=== PATIENT | male | born 1965 | race Caucasian/White ===

== ENCOUNTER 2018-06-19 01:47 | Inpatient (IN) | payer OTHER ==
[2018-06-19] MEDS ORDERED: NACL 0.9% 3 ML SYG IV (02:30)
[2018-06-19] MEDS ORDERED: ACETAMINOPHEN 325 MG TAB PO (02:30)
[2018-06-19] MEDS ORDERED: ONDANSETRON 4 MG INJ IV (02:30)
[2018-06-19] MEDS ORDERED: LORAZEPAM 2 MG INJ IV (02:30)
[2018-06-19 04:36] LABS: ADD MAN DIFF? NO; HAAIG REFLEX REFLEX FILED
[2018-06-19 04:39] LABS: WHITE BLOOD COUNT 6.8 10^3/ul (4.8-10.8)
[2018-06-19 04:39] LABS: ABNORMAL IP MESSAGE 1; BASOPHIL # 0.1 10^3/ul (0.0-0.1); BASOPHILS % 0.7 % (0.0-2.0); EOSINOPHILS # 0.4 10^3/ul (0.0-0.5); EOSINOPHILS % 5.9 % (0.0-7.0); HEMATOCRIT 30.2 % (42.0-52.0); HEMOGLOBIN 10.3 g/dl (14.0-18.0); LYMPHOCYTES # 1.1 10^3/ul (0.8-2.9); MEAN CORPUSCULAR HEMOGLOBIN 37.1 pg (29.0-33.0); MEAN CORPUSCULAR HGB CONC 34.1 g/dl (32.0-37.0); MEAN CORPUSCULAR VOLUME 108.6 fl (82.0-101.0); MEAN PLATELET VOLUME 10.4 fl (7.4-10.4); MONOCYTE # 0.6 10^3/ul (0.3-0.9); MONOCYTES % 8.7 % (0.0-11.0); NEUTROPHIL # 4.7 10^3/ul (1.6-7.5); NEUTROPHILS % 68.3 % (39.0-77.0); PLATELET COUNT 70 10^3/UL (140-415); POSITIVE DIFF @See below; RED BLOOD COUNT 2.78 10^6/ul (4.70-6.10); RED CELL DISTRIBUTION WIDTH 12.7 % (11.5-14.5)
[2018-06-19 04:48] LABS: HEMOGLOBIN A1C 4.5 % (0-5.9)
[2018-06-19 04:57] LABS: ALANINE AMINOTRANSFERASE 28 IU/L (13-69); ALBUMIN 2.6 g/dl (3.3-4.9); ALBUMIN/GLOBULIN RATIO 0.56; ALKALINE PHOSPHATASE 131 IU/L (42-121); ANION GAP 5 (5-13); ASPARTATE AMINO TRANSFERASE 40 IU/L (15-46); BILIRUBIN,INDIRECT 2.1 mg/dl (0-1.1); BILIRUBIN,TOTAL 2.1 mg/dl (0.2-1.3); BLOOD UREA NITROGEN 10 mg/dl (7-20); CALCIUM 7.9 mg/dl (8.4-10.2); CARBON DIOXIDE 28 mmol/L (21-31); CHLORIDE 103 mmol/L (97-110); CHOL/HDL RATIO 3.4 RATIO; CHOLESTEROL 75 mg/dl (100-200); CREATININE 0.63 mg/dl (0.61-1.24); Estimated GFR > 60 mL/min (>60); GLUCOSE 104 mg/dl (70-220); HDL CHOLESTEROL 22 mg/dl (28-71); LDL CHOLESTEROL,CALCULATED 43 mg/dl; MAGNESIUM 1.6 mg/dl (1.7-2.5); POTASSIUM 3.9 mmol/L (3.5-5.1); SODIUM 136 mmol/L (135-144); TOTAL PROTEIN 7.2 g/dl (6.1-8.1); TRIGLYCERIDES 50 mg/dl (0-149)
[2018-06-19 04:58] LABS: INR 1.57; PROTIME 19.1 Sec (11.9-14.9); PT RATIO 1.5
[2018-06-19 05:29] LABS: HEPATITIS B SURFACE ANTIGEN NEGATIVE (NEGATIVE)
[2018-06-19 05:45] LABS: ETHANOL < 10.0 mg/dl
[2018-06-19 05:46] LABS: HEPATITIS C VIRAL ANTIBODY REACTIVE (NEGATIVE)
[2018-06-19] MEDS: morphine 2 MG INJ IV ×5 (05:56→22:52)
[2018-06-19 06:03] LABS: FOLATE 10.7 ng/ml (2.8-20.0)
[2018-06-19 06:30] LABS: HEPATITIS B SURFACE ANTIBODY POSITIVE (NEGATIVE)
[2018-06-19] MEDS: CHLORDIAZEPOXIDE 25 MG CAP PO ×3 (06:32→21:00)
[2018-06-19 08:04] LABS: HEPATITIS B CORE ANTIBODY REACTIVE (NEGATIVE)
[2018-06-19 08:33] LABS: ADD UMIC YES; UR ASCORBIC ACID NEGATIVE (NEGATIVE); UR BILIRUBIN (Dip) NEGATIVE (NEGATIVE); UR BLOOD (Dip) 2+ mg/dL (NEGATIVE); UR CLARITY SLIGHTLY CLOUDY (CLEAR); UR COLOR AMBER (YELLOW); UR GLUCOSE (Dip) NEGATIVE (NEGATIVE); UR KETONES (Dip) NEGATIVE (NEGATIVE); UR LEUKOCYTE ESTERASE (Dip) NEGATIVE Leu/ul (NEGATIVE); UR NITRITE (Dip) NEGATIVE (NEGATIVE); UR RBC 17 /HPF (0-5); UR SPECIFIC GRAVITY (Dip) 1.053 (1.003-1.030); UR SQUAMOUS EPITHELIAL CELL FEW /HPF (FEW); UR TOTAL PROTEIN (Dip) 1+ mg/dl (NEGATIVE); UR UROBILINOGEN (Dip) 1+ mg/dL (NEGATIVE); UR WBC 2 /HPF (0-5)
[2018-06-19] MEDS: FUROSEMIDE 40 MG INJ IV (09:19)
[2018-06-19] MEDS: THIAMINE 200 MG INJ IM (09:19)
[2018-06-19 09:26] LABS: AMPHETAMINE/METHAMPHETAMINE Negative (NEGATIVE); BARBITURATES Negative (NEGATIVE); BENZODIAZEPINES Negative (NEGATIVE); CANNABINOIDS Negative (NEGATIVE); COCAINE Negative (NEGATIVE)
[2018-06-19 09:31] LABS: OPIATES Positive (NEGATIVE)
[2018-06-19] MEDS: MAGNESIUM SULFATE 2 GM/50 ML 50 ML IVPB (11:26)
[2018-06-19] MEDS: NICOTINE POLACRILEX 2 MG GUM BUCCAL (16:09)
[2018-06-20] MEDS: morphine 2 MG INJ IV ×5 (03:58→20:55)
[2018-06-20] MEDS: THIAMINE 200 MG INJ IM (05:49)
[2018-06-20] MEDS: CHLORDIAZEPOXIDE 25 MG CAP PO ×4 (05:51→21:00)
[2018-06-20 06:00] LABS: ADD MAN DIFF? NO
[2018-06-20 06:01] LABS: WHITE BLOOD COUNT 5.4 10^3/ul (4.8-10.8)
[2018-06-20 06:01] LABS: ABNORMAL IP MESSAGE 1; BASOPHIL # 0.1 10^3/ul (0.0-0.1); BASOPHILS % 1.1 % (0.0-2.0); EOSINOPHILS # 0.4 10^3/ul (0.0-0.5); EOSINOPHILS % 7.6 % (0.0-7.0); HEMATOCRIT 27.1 % (42.0-52.0); HEMOGLOBIN 9.2 g/dl (14.0-18.0); LYMPHOCYTES # 1.4 10^3/ul (0.8-2.9); LYMPHOCYTES % 25.5 % (15.0-51.0); MEAN CORPUSCULAR HEMOGLOBIN 36.9 pg (29.0-33.0); MEAN CORPUSCULAR HGB CONC 33.9 g/dl (32.0-37.0); MEAN CORPUSCULAR VOLUME 108.8 fl (82.0-101.0); MEAN PLATELET VOLUME 10.8 fl (7.4-10.4); MONOCYTE # 0.6 10^3/ul (0.3-0.9); MONOCYTES % 11.6 % (0.0-11.0); NEUTROPHIL # 2.9 10^3/ul (1.6-7.5); NEUTROPHILS % 53.8 % (39.0-77.0); PLATELET COUNT 63 10^3/UL (140-415); POSITIVE DIFF @See below; RED BLOOD COUNT 2.49 10^6/ul (4.70-6.10); RED CELL DISTRIBUTION WIDTH 12.6 % (11.5-14.5)
[2018-06-20 06:32] LABS: INR 1.56; PT RATIO 1.5
[2018-06-20 06:44] LABS: PHOSPHORUS 4.2 mg/dl (2.5-4.9)
[2018-06-20 06:44] LABS: MAGNESIUM 1.7 mg/dl (1.7-2.5)
[2018-06-20 07:15] LABS: AMMONIA 43 umol/l (9-30)
[2018-06-20 07:31] LABS: ALANINE AMINOTRANSFERASE 21 IU/L (13-69); ALBUMIN 2.1 g/dl (3.3-4.9); ALBUMIN/GLOBULIN RATIO 0.55; ALKALINE PHOSPHATASE 159 IU/L (42-121); ANION GAP 3 (5-13); ASPARTATE AMINO TRANSFERASE 38 IU/L (15-46); BILIRUBIN,INDIRECT 0.8 mg/dl (0-1.1); BILIRUBIN,TOTAL 0.8 mg/dl (0.2-1.3); BLOOD UREA NITROGEN 13 mg/dl (7-20); CALCIUM 7.5 mg/dl (8.4-10.2); CARBON DIOXIDE 29 mmol/L (21-31); CHLORIDE 102 mmol/L (97-110); CREATININE 0.61 mg/dl (0.61-1.24); Estimated GFR > 60 mL/min (>60); GLUCOSE 106 mg/dl (70-220); SODIUM 134 mmol/L (135-144); TOTAL PROTEIN 5.9 g/dl (6.1-8.1)
[2018-06-20] MEDS: FUROSEMIDE 40 MG INJ IV (08:23)
[2018-06-20] MEDS: LACTULOSE 30ML CUP PO ×2 (10:10→20:21)
[2018-06-20] MEDS: NICOTINE POLACRILEX 2 MG GUM BUCCAL (10:28)
[2018-06-20] MEDS: LIDOCAINE 1% (MPF) 5 ML VIAL (15:19)
[2018-06-20 15:35] LABS: FLD PMN% 21.2 %; FLD RBC 0 /uL; FLD WBC 142 /cmm
[2018-06-20 15:42] LABS: FLUID LD 248 U/L; FLUID TYPE PARACENTESIS FLUID
[2018-06-20 16:44] LABS: FLD TYPE PARACENTHESIS
[2018-06-20 16:44] LABS: FLD CLARITY HAZY; FLD COLOR YELLOW; FLD MN% 78.8 %
[2018-06-20] MEDS: ALBUMIN HUMAN 25% 100 ML IV ×2 (17:51→18:54)
[2018-06-21] MEDS: morphine 2 MG INJ IV ×3 (05:29→15:14)
[2018-06-21 05:32] LABS: ADD MAN DIFF? NO
[2018-06-21] MEDS: CHLORDIAZEPOXIDE 25 MG CAP PO ×2 (05:32→12:28)
[2018-06-21 05:46] LABS: WHITE BLOOD COUNT 5.6 10^3/ul (4.8-10.8)
[2018-06-21 05:46] LABS: ABNORMAL IP MESSAGE 1; BASOPHIL # 0.1 10^3/ul (0.0-0.1); BASOPHILS % 0.9 % (0.0-2.0); EOSINOPHILS # 0.3 10^3/ul (0.0-0.5); EOSINOPHILS % 5.2 % (0.0-7.0); HEMATOCRIT 27.5 % (42.0-52.0); HEMOGLOBIN 9.6 g/dl (14.0-18.0); LYMPHOCYTES # 1.2 10^3/ul (0.8-2.9); LYMPHOCYTES % 22.1 % (15.0-51.0); MEAN CORPUSCULAR HEMOGLOBIN 37.6 pg (29.0-33.0); MEAN CORPUSCULAR HGB CONC 34.9 g/dl (32.0-37.0); MEAN CORPUSCULAR VOLUME 107.8 fl (82.0-101.0); MEAN PLATELET VOLUME 10.9 fl (7.4-10.4); MONOCYTE # 0.6 10^3/ul (0.3-0.9); MONOCYTES % 11.2 % (0.0-11.0); NEUTROPHIL # 3.4 10^3/ul (1.6-7.5); NEUTROPHILS % 60.2 % (39.0-77.0); PLATELET COUNT 58 10^3/UL (140-415); POSITIVE DIFF @See below; RED BLOOD COUNT 2.55 10^6/ul (4.70-6.10); RED CELL DISTRIBUTION WIDTH 12.4 % (11.5-14.5)
[2018-06-21 05:59] LABS: INR 1.83; PROTIME 21.6 Sec (11.9-14.9); PT RATIO 1.7
[2018-06-21 06:19] LABS: MAGNESIUM 1.7 mg/dl (1.7-2.5)
[2018-06-21 06:58] LABS: AMMONIA 44 umol/l (9-30)
[2018-06-21 07:35] LABS: ALANINE AMINOTRANSFERASE 24 IU/L (13-69); ALBUMIN 2.3 g/dl (3.3-4.9); ALBUMIN/GLOBULIN RATIO 0.67; ALKALINE PHOSPHATASE 132 IU/L (42-121); ANION GAP 4 (5-13); ASPARTATE AMINO TRANSFERASE 36 IU/L (15-46); BILIRUBIN,INDIRECT 0.9 mg/dl (0-1.1); BILIRUBIN,TOTAL 0.9 mg/dl (0.2-1.3); BLOOD UREA NITROGEN 12 mg/dl (7-20); CALCIUM 7.6 mg/dl (8.4-10.2); CARBON DIOXIDE 30 mmol/L (21-31); CHLORIDE 102 mmol/L (97-110); CREATININE 0.62 mg/dl (0.61-1.24); Estimated GFR > 60 mL/min (>60); GLUCOSE 106 mg/dl (70-220); SODIUM 136 mmol/L (135-144); TOTAL PROTEIN 5.7 g/dl (6.1-8.1)
[2018-06-21] MEDS: LACTULOSE 30ML CUP PO (08:31)
[2018-06-21] MEDS: FUROSEMIDE 40 MG INJ IV (08:31)
[2018-06-21] MEDS: THIAMINE 200 MG INJ IM (10:35)
[2018-06-22] MEDS ORDERED: THIAMINE 100 MG TAB PO (09:00)
[2018-06-22] MEDS ORDERED: FUROSEMIDE 20 MG TAB PO (09:00)
[2018-06-22] MEDS ORDERED: SPIRONOLACTONE 50 MG TAB PO (21:00)
[2018-06-23 17:46] LABS: VITAMIN B1 (THIAMINE) 107 nmol/L (78-185)
== END 2018-06-21 17:52 | disposition home or self-care (01) | DRG 433 ==
LOC: PP2 06-20 16:49 → TEL 01:47
PROC: 0W9G3ZZ Drainage of Peritoneal Cavity, Percutaneous Approach (ICD-10-PCS; principal; 2018-06-20)
DX: K70.31 Alcoholic cirrhosis of liver with ascites (principal); D68.4 Acquired coagulation factor deficiency; K76.6 Portal hypertension; B18.2 Chronic viral hepatitis C; D50.9 Iron deficiency anemia, unspecified; E66.9 Obesity, unspecified; F10.20 Alcohol dependence, uncomplicated; F32.9 Major depressive disorder, single episode, unspecified; F17.200 Nicotine dependence, unspecified, uncomplicated; I10 Essential (primary) hypertension; Z68.32 Body mass index [BMI] 32.0-32.9, adult
CPT/HCPCS: 80053; 80061; 80307; 81001; 82140; 82607; 82746; 83036; 83615; 83735; 84100; 84157; 84425; 84443; 85025; 85610; 86692; 86704; 86706; 86709; 86803; 87070; 87102; 87116; 87340; 87522; 89051

== ENCOUNTER 2018-06-23 01:19 | Observation (INO) | payer OTHER ==
[2018-06-23 02:18] LABS: ADD MAN DIFF? NO
[2018-06-23 02:22] LABS: ABNORMAL IP MESSAGE 1; BASOPHIL # 0.1 10^3/ul (0.0-0.1); BASOPHILS % 0.9 % (0.0-2.0); EOSINOPHILS # 0.2 10^3/ul (0.0-0.5); EOSINOPHILS % 3.5 % (0.0-7.0); HEMATOCRIT 29.6 % (42.0-52.0); HEMOGLOBIN 10.5 g/dl (14.0-18.0); LYMPHOCYTES % 16.9 % (15.0-51.0); MEAN CORPUSCULAR HEMOGLOBIN 37.8 pg (29.0-33.0); MEAN CORPUSCULAR HGB CONC 35.5 g/dl (32.0-37.0); MEAN CORPUSCULAR VOLUME 106.5 fl (82.0-101.0); MEAN PLATELET VOLUME 10.5 fl (7.4-10.4); MONOCYTE # 0.6 10^3/ul (0.3-0.9); MONOCYTES % 10.8 % (0.0-11.0); NEUTROPHIL # 3.8 10^3/ul (1.6-7.5); NEUTROPHILS % 67.5 % (39.0-77.0); PLATELET COUNT 61 10^3/UL (140-415); POSITIVE DIFF @See below; RED BLOOD COUNT 2.78 10^6/ul (4.70-6.10); RED CELL DISTRIBUTION WIDTH 12.5 % (11.5-14.5)
[2018-06-23 02:22] LABS: WHITE BLOOD COUNT 5.7 10^3/ul (4.8-10.8)
[2018-06-23 02:41] LABS: INR 1.51; PROTIME 18.5 Sec (11.9-14.9); PT RATIO 1.4
[2018-06-23 02:42] LABS: PARTIAL THROMBOPLASTIN TIME 39.8 Sec (23.0-35.0)
[2018-06-23 02:46] LABS: ALANINE AMINOTRANSFERASE 27 IU/L (13-69); ALBUMIN 2.8 g/dl (3.3-4.9); ALBUMIN/GLOBULIN RATIO 0.68; ALKALINE PHOSPHATASE 180 IU/L (42-121); ANION GAP 4 (5-13); ASPARTATE AMINO TRANSFERASE 45 IU/L (15-46); BILIRUBIN,INDIRECT 1.7 mg/dl (0-1.1); BILIRUBIN,TOTAL 1.7 mg/dl (0.2-1.3); BLOOD UREA NITROGEN 16 mg/dl (7-20); CARBON DIOXIDE 29 mmol/L (21-31); CHLORIDE 101 mmol/L (97-110); CREATININE 0.65 mg/dl (0.61-1.24); Estimated GFR > 60 mL/min (>60); GLUCOSE 105 mg/dl (70-220); LIPASE 342 U/L (23-300); POTASSIUM 3.6 mmol/L (3.5-5.1); SODIUM 134 mmol/L (135-144); TOTAL PROTEIN 6.9 g/dl (6.1-8.1)
[2018-06-23] MEDS ORDERED: ACETAMINOPHEN 325 MG TAB PO (04:00)
[2018-06-23] MEDS ORDERED: ONDANSETRON 4 MG INJ IV (04:00)
[2018-06-23] MEDS ORDERED: ALBUTEROL/IPRATROPIUM (NEB) 3 ML AMP HHN (04:00)
[2018-06-23] MEDS ORDERED: NACL 0.9% 3 ML SYG IV (04:00)
[2018-06-23] MEDS ORDERED: NICOTINE POLACRILEX 2 MG GUM BUCCAL (04:00)
[2018-06-23] MEDS: FUROSEMIDE 40 MG INJ IV (04:21)
[2018-06-23] MEDS: HYDROCODONE/APAP (5/325) TAB PO ×2 (04:22→11:19)
[2018-06-23 05:48] LABS: ADD MAN DIFF? NO
[2018-06-23 06:03] LABS: WHITE BLOOD COUNT 5.8 10^3/ul (4.8-10.8)
[2018-06-23 06:03] LABS: ABNORMAL IP MESSAGE 1; BASOPHILS % 0.7 % (0.0-2.0); EOSINOPHILS # 0.1 10^3/ul (0.0-0.5); HEMATOCRIT 29.5 % (42.0-52.0); HEMOGLOBIN 10.5 g/dl (14.0-18.0); MEAN CORPUSCULAR HEMOGLOBIN 37.2 pg (29.0-33.0); MEAN CORPUSCULAR HGB CONC 35.6 g/dl (32.0-37.0); MEAN CORPUSCULAR VOLUME 104.6 fl (82.0-101.0); MEAN PLATELET VOLUME 10.8 fl (7.4-10.4); MONOCYTE # 0.5 10^3/ul (0.3-0.9); MONOCYTES % 8.4 % (0.0-11.0); NEUTROPHIL # 4.2 10^3/ul (1.6-7.5); NEUTROPHILS % 72.4 % (39.0-77.0); PLATELET COUNT 62 10^3/UL (140-415); POSITIVE DIFF @See below; RED BLOOD COUNT 2.82 10^6/ul (4.70-6.10); RED CELL DISTRIBUTION WIDTH 12.3 % (11.5-14.5)
[2018-06-23 06:53] LABS: ALANINE AMINOTRANSFERASE 30 IU/L (13-69); ALBUMIN 2.6 g/dl (3.3-4.9); ALBUMIN/GLOBULIN RATIO 0.59; ALKALINE PHOSPHATASE 175 IU/L (42-121); ANION GAP 4 (5-13); ASPARTATE AMINO TRANSFERASE 47 IU/L (15-46); BILIRUBIN,INDIRECT 2.3 mg/dl (0-1.1); BILIRUBIN,TOTAL 2.3 mg/dl (0.2-1.3); BLOOD UREA NITROGEN 15 mg/dl (7-20); CALCIUM 7.8 mg/dl (8.4-10.2); CARBON DIOXIDE 30 mmol/L (21-31); CHLORIDE 101 mmol/L (97-110); CREATININE 0.62 mg/dl (0.61-1.24); Estimated GFR > 60 mL/min (>60); GLUCOSE 111 mg/dl (70-220); POTASSIUM 3.8 mmol/L (3.5-5.1); SODIUM 135 mmol/L (135-144)
[2018-06-23 07:32] LABS: ALPHA FETOPROTEIN 1.56 IU/L (0.00-7.21)
[2018-06-23] MEDS: SPIRONOLACTONE 50 MG TAB PO (08:57)
[2018-06-23] MEDS: LIDOCAINE 1% (MPF) 5 ML VIAL (10:34)
== END 2018-06-23 15:20 | disposition home or self-care (01) ==
LOC: E/R 01:19 → 2NE 01:54
DX: K70.31 Alcoholic cirrhosis of liver with ascites (principal); B19.10 Unspecified viral hepatitis B without hepatic coma; B19.20 Unspecified viral hepatitis C without hepatic coma; D64.9 Anemia, unspecified; I10 Essential (primary) hypertension
CPT/HCPCS: 36415; 80053; 82105; 83690; 85025; 85610; 85730; 99285-25

== ENCOUNTER 2018-08-20 22:48 | Emergency (ER) | payer OTHER ==
[2018-08-21] MEDS: HYDROCODONE/APAP (5/325) TAB PO (01:35)
[2018-08-21] MEDS: ONDANSETRON (ODT) 4 MG TAB ODT (01:35)
[2018-08-21 01:41] LABS: ADD MAN DIFF? NO
[2018-08-21 01:45] LABS: ABNORMAL IP MESSAGE 1; BASOPHIL # 0.1 10^3/ul (0.0-0.1); BASOPHILS % 1.3 % (0.0-2.0); EOSINOPHILS # 0.5 10^3/ul (0.0-0.5); EOSINOPHILS % 9.6 % (0.0-7.0); HEMATOCRIT 24.3 % (42.0-52.0); HEMOGLOBIN 8.2 g/dl (14.0-18.0); LYMPHOCYTES # 1.5 10^3/ul (0.8-2.9); LYMPHOCYTES % 30.5 % (15.0-51.0); MEAN CORPUSCULAR HEMOGLOBIN 35.7 pg (29.0-33.0); MEAN CORPUSCULAR HGB CONC 33.7 g/dl (32.0-37.0); MEAN CORPUSCULAR VOLUME 105.7 fl (82.0-101.0); MEAN PLATELET VOLUME 10.4 fl (7.4-10.4); MONOCYTE # 0.6 10^3/ul (0.3-0.9); MONOCYTES % 13.2 % (0.0-11.0); NEUTROPHIL # 2.2 10^3/ul (1.6-7.5); PLATELET COUNT 85 10^3/UL (140-415); POSITIVE DIFF @See below; RED CELL DISTRIBUTION WIDTH 13.5 % (11.5-14.5)
[2018-08-21 01:45] LABS: WHITE BLOOD COUNT 4.8 10^3/ul (4.8-10.8)
[2018-08-21 02:07] LABS: ALANINE AMINOTRANSFERASE 32 IU/L (13-69); ALBUMIN 2.6 g/dl (3.3-4.9); ALBUMIN/GLOBULIN RATIO 0.55; ALKALINE PHOSPHATASE 177 IU/L (42-121); ANION GAP 6 (5-13); ASPARTATE AMINO TRANSFERASE 41 IU/L (15-46); BLOOD UREA NITROGEN 14 mg/dl (7-20); CARBON DIOXIDE 26 mmol/L (21-31); CHLORIDE 101 mmol/L (97-110); CREATININE 0.71 mg/dl (0.61-1.24); Estimated GFR > 60 mL/min (>60); GLUCOSE 139 mg/dl (70-220); LIPASE 316 U/L (23-300); POTASSIUM 3.7 mmol/L (3.5-5.1); SODIUM 133 mmol/L (135-144); TOTAL PROTEIN 7.3 g/dl (6.1-8.1)
[2018-08-21 02:20] LABS: URINE PH (Dip) POC 5.5 (5.0-8.5)
[2018-08-21 02:20] LABS: URINE BLOOD (Dip) POC Trace-lysed (NEGATIVE); URINE GLUCOSE (Dip) POC Negative (NEGATIVE); URINE KETONES (Dip) POC Negative (NEGATIVE); URINE LEUKOCYTE EST (Dip) POC Negative (NEGATIVE); URINE NITRITE (Dip) POC Negative (NEGATIVE); URINE TOTAL PROTEIN POC Trace (NEGATIVE)
== END 2018-08-21 03:25 | disposition home or self-care (01) ==
LOC: E/R 22:48
DX: R18.8 Other ascites (principal); D64.9 Anemia, unspecified; D69.6 Thrombocytopenia, unspecified; F17.210 Nicotine dependence, cigarettes, uncomplicated; I10 Essential (primary) hypertension
CPT/HCPCS: 36415; 80053; 81003; 83690; 85025; 99283

== ENCOUNTER 2018-08-21 15:31 | Emergency (ER) | payer OTHER ==
[2018-08-21 18:47] LABS: INR 1.42; PROTIME 17.5 Sec (11.9-14.9); PT RATIO 1.4
[2018-08-21 18:48] LABS: PARTIAL THROMBOPLASTIN TIME 43.1 Sec (23.0-35.0)
== END 2018-08-21 20:29 | disposition home or self-care (01) ==
LOC: E/R 15:31
DX: K70.31 Alcoholic cirrhosis of liver with ascites (principal); Z87.891 Personal history of nicotine dependence
CPT/HCPCS: 49083; 85610; 85730; 99285-25

== ENCOUNTER 2018-08-29 14:43 | Emergency (ER) | payer OTHER ==
[2018-08-29 16:13] LABS: ADD MAN DIFF? NO
[2018-08-29] MEDS: BELLADONNA/PHENOBARBITAL TAB PO (16:18)
[2018-08-29] MEDS: FAMOTIDINE 20 MG INJ IV (16:18)
[2018-08-29] MEDS: LIDOCAINE/MYLANTA 40 ML BTL PO (16:18)
[2018-08-29 16:24] LABS: WHITE BLOOD COUNT 5.4 10^3/ul (4.8-10.8)
[2018-08-29 16:24] LABS: ABNORMAL IP MESSAGE 1; BASOPHIL # 0.1 10^3/ul (0.0-0.1); BASOPHILS % 0.9 % (0.0-2.0); EOSINOPHILS # 0.4 10^3/ul (0.0-0.5); EOSINOPHILS % 6.9 % (0.0-7.0); HEMATOCRIT 25.8 % (42.0-52.0); HEMOGLOBIN 8.9 g/dl (14.0-18.0); LYMPHOCYTES # 1.2 10^3/ul (0.8-2.9); LYMPHOCYTES % 22.9 % (15.0-51.0); MEAN CORPUSCULAR HEMOGLOBIN 36.3 pg (29.0-33.0); MEAN CORPUSCULAR HGB CONC 34.5 g/dl (32.0-37.0); MEAN CORPUSCULAR VOLUME 105.3 fl (82.0-101.0); MEAN PLATELET VOLUME 10.5 fl (7.4-10.4); MONOCYTE # 0.7 10^3/ul (0.3-0.9); MONOCYTES % 12.7 % (0.0-11.0); NEUTROPHILS % 56.4 % (39.0-77.0); PLATELET COUNT 93 10^3/UL (140-415); POSITIVE DIFF @See below; RED BLOOD COUNT 2.45 10^6/ul (4.70-6.10); RED CELL DISTRIBUTION WIDTH 14.2 % (11.5-14.5)
[2018-08-29 16:27] LABS: ADD UMIC NO; UR ASCORBIC ACID NEGATIVE (NEGATIVE); UR BILIRUBIN (Dip) 1+ mg/dL (NEGATIVE); UR BLOOD (Dip) NEGATIVE (NEGATIVE); UR CLARITY SLIGHTLY CLOUDY (CLEAR); UR COLOR AMBER (YELLOW); UR GLUCOSE (Dip) NEGATIVE (NEGATIVE); UR HYALINE CAST FEW /HPF (NONE SEEN); UR KETONES (Dip) TRACE mg/dL (NEGATIVE); UR LEUKOCYTE ESTERASE (Dip) NEGATIVE Leu/ul (NEGATIVE); UR NITRITE (Dip) NEGATIVE (NEGATIVE); UR RBC 1 /HPF (0-5); UR SQUAMOUS EPITHELIAL CELL FEW /HPF (FEW); UR TOTAL PROTEIN (Dip) NEGATIVE (NEGATIVE); UR UROBILINOGEN (Dip) 2+ mg/dL (NEGATIVE); UR WBC 12 /HPF (0-5)
[2018-08-29 16:57] LABS: ALANINE AMINOTRANSFERASE 36 IU/L (13-69); ALBUMIN 2.4 g/dl (3.3-4.9); ALBUMIN/GLOBULIN RATIO 0.52; ALKALINE PHOSPHATASE 203 IU/L (42-121); ANION GAP 10 (5-13); ASPARTATE AMINO TRANSFERASE 43 IU/L (15-46); BILIRUBIN,INDIRECT 1.2 mg/dl (0-1.1); BILIRUBIN,TOTAL 1.2 mg/dl (0.2-1.3); BLOOD UREA NITROGEN 17 mg/dl (7-20); CALCIUM 8.1 mg/dl (8.4-10.2); CARBON DIOXIDE 26 mmol/L (21-31); CHLORIDE 97 mmol/L (97-110); CREATININE 0.95 mg/dl (0.61-1.24); Estimated GFR > 60 mL/min (>60); GLUCOSE 109 mg/dl (70-220); LIPASE 335 U/L (23-300); POTASSIUM 4.2 mmol/L (3.5-5.1); SODIUM 133 mmol/L (135-144)
[2018-08-29 17:08] LABS: TROPONIN-I < 0.012 ng/ml (0.000-0.120)
[2018-08-29] MEDS: LIDOCAINE 1% (MPF) 5 ML VIAL (19:03)
== END 2018-08-29 20:23 | disposition home or self-care (01) ==
LOC: E/R 14:43
DX: K70.31 Alcoholic cirrhosis of liver with ascites (principal); D53.9 Nutritional anemia, unspecified; D69.6 Thrombocytopenia, unspecified; E80.6 Other disorders of bilirubin metabolism; R74.8 Abnormal levels of other serum enzymes; N30.00 Acute cystitis without hematuria; I10 Essential (primary) hypertension; F17.210 Nicotine dependence, cigarettes, uncomplicated; Z48.817 Encounter for surgical aftercare following surgery on the skin and subcutaneous tissue
CPT/HCPCS: 36415; 80053; 81001; 81003; 83690; 84484; 85025; 93005; 96374; 99285-25

== ENCOUNTER 2018-08-31 13:14 | Emergency (ER) | payer OTHER | END 2018-08-31 17:24 | disposition home or self-care (01) | LOC: E/R 13:14 | DX: T81.89XA Other complications of procedures, not elsewhere classified, initial encounter (principal); K70.31 Alcoholic cirrhosis of liver with ascites; I10 Essential (primary) hypertension; F17.210 Nicotine dependence, cigarettes, uncomplicated; Y73.3 Surgical instruments, materials and gastroenterology and urology devices (including sutures) associated with adverse incidents | CPT/HCPCS: 99282; Z7502 ==

== ENCOUNTER 2018-09-04 00:24 | Emergency (ER) | payer OTHER | END 2018-09-04 00:51 | disposition home or self-care (01) | LOC: E/R 00:24 | DX: R18.8 Other ascites (principal); F17.210 Nicotine dependence, cigarettes, uncomplicated; I10 Essential (primary) hypertension | CPT/HCPCS: 99282; Z7502 ==

== ENCOUNTER 2018-09-04 11:27 | Emergency (ER) | payer OTHER ==
[2018-09-04] MEDS: LIDOCAINE 2% (SDV) 5 ML INJ (14:15)
== END 2018-09-04 14:32 | disposition home or self-care (01) ==
LOC: E/R 11:27
DX: K70.31 Alcoholic cirrhosis of liver with ascites (principal); I10 Essential (primary) hypertension; F17.210 Nicotine dependence, cigarettes, uncomplicated; Z98.890 Other specified postprocedural states
CPT/HCPCS: 99285-25; Z7502

== ENCOUNTER 2018-09-11 10:41 | Emergency (ER) | payer OTHER ==
[2018-09-11] MEDS: LIDOCAINE 1% (MPF) 5 ML VIAL (13:33)
== END 2018-09-11 14:49 | disposition home or self-care (01) ==
LOC: E/R 10:41
DX: K70.31 Alcoholic cirrhosis of liver with ascites (principal); R06.02 Shortness of breath; F17.210 Nicotine dependence, cigarettes, uncomplicated; I10 Essential (primary) hypertension; Z48.817 Encounter for surgical aftercare following surgery on the skin and subcutaneous tissue
CPT/HCPCS: 49083; 99285-25

== ENCOUNTER 2018-09-17 12:45 | Emergency (ER) | payer OTHER ==
[2018-09-17] MEDS ORDERED: LIDOCAINE 1% (MPF) 5 ML VIAL (14:35)
== END 2018-09-17 15:20 | disposition home or self-care (01) ==
LOC: E/R 12:45
DX: R18.8 Other ascites (principal); F17.210 Nicotine dependence, cigarettes, uncomplicated; I10 Essential (primary) hypertension
CPT/HCPCS: 99285-25; Z7502

== ENCOUNTER 2018-09-19 13:42 | Emergency (ER) | payer OTHER | END 2018-09-19 14:40 | disposition home or self-care (01) | LOC: E/R 13:42 | DX: T81.89XA Other complications of procedures, not elsewhere classified, initial encounter (principal); R18.8 Other ascites; I10 Essential (primary) hypertension; Y82.9 Unspecified medical devices associated with adverse incidents; Z87.891 Personal history of nicotine dependence | CPT/HCPCS: 12001; 99282-25 ==

== ENCOUNTER 2018-09-23 13:22 | Emergency (ER) | payer OTHER ==
[2018-09-23] MEDS: LIDOCAINE 1% (MPF) 5 ML VIAL (17:55)
== END 2018-09-23 18:48 | disposition home or self-care (01) ==
LOC: E/R 13:22
DX: K70.11 Alcoholic hepatitis with ascites (principal); I10 Essential (primary) hypertension; F17.210 Nicotine dependence, cigarettes, uncomplicated
CPT/HCPCS: 99285-25; Z7502

== ENCOUNTER 2018-09-27 13:07 | Emergency (ER) | payer OTHER | END 2018-09-27 17:52 | disposition home or self-care (01) | LOC: E/R 13:07 | DX: R18.8 Other ascites (principal); I10 Essential (primary) hypertension; F17.210 Nicotine dependence, cigarettes, uncomplicated | CPT/HCPCS: 99285-25; Z7502 ==

== ENCOUNTER 2018-10-05 08:48 | Emergency (ER) | payer OTHER ==
[2018-10-05 09:37] LABS: ADD MAN DIFF? NO
[2018-10-05 09:39] LABS: WHITE BLOOD COUNT 6.7 10^3/ul (4.8-10.8)
[2018-10-05 09:39] LABS: BASOPHIL # 0.1 10^3/ul (0.0-0.1); BASOPHILS % 0.7 % (0.0-2.0); EOSINOPHILS # 0.5 10^3/ul (0.0-0.5); EOSINOPHILS % 7.3 % (0.0-7.0); HEMOGLOBIN 8.9 g/dl (14.0-18.0); LYMPHOCYTES # 1.3 10^3/ul (0.8-2.9); LYMPHOCYTES % 19.5 % (15.0-51.0); MEAN CORPUSCULAR HEMOGLOBIN 35.3 pg (29.0-33.0); MEAN CORPUSCULAR HGB CONC 34.2 g/dl (32.0-37.0); MEAN CORPUSCULAR VOLUME 103.2 fl (82.0-101.0); MEAN PLATELET VOLUME 9.1 fl (7.4-10.4); MONOCYTE # 1.2 10^3/ul (0.3-0.9); MONOCYTES % 18.3 % (0.0-11.0); NEUTROPHIL # 3.6 10^3/ul (1.6-7.5); NEUTROPHILS % 53.5 % (39.0-77.0); PLATELET COUNT 106 10^3/UL (140-415); RED BLOOD COUNT 2.52 10^6/ul (4.70-6.10); RED CELL DISTRIBUTION WIDTH 12.7 % (11.5-14.5)
[2018-10-05 09:58] LABS: ALANINE AMINOTRANSFERASE 42 IU/L (13-69); ALBUMIN 2.6 g/dl (3.3-4.9); ALBUMIN/GLOBULIN RATIO 0.54; ALKALINE PHOSPHATASE 322 IU/L (42-121); ANION GAP 8 (5-13); ASPARTATE AMINO TRANSFERASE 47 IU/L (15-46); BLOOD UREA NITROGEN 24 mg/dl (7-20); CARBON DIOXIDE 21 mmol/L (21-31); CHLORIDE 101 mmol/L (97-110); CREATININE 0.94 mg/dl (0.61-1.24); Estimated GFR > 60 mL/min (>60); GLUCOSE 107 mg/dl (70-220); SODIUM 130 mmol/L (135-144); TOTAL PROTEIN 7.4 g/dl (6.1-8.1)
[2018-10-05 09:59] LABS: INR 1.28; PROTIME 16.1 Sec (11.9-14.9); PT RATIO 1.3
[2018-10-05 10:00] LABS: PARTIAL THROMBOPLASTIN TIME 40.9 Sec (23.0-35.0)
[2018-10-05 10:01] LABS: POTASSIUM 5.1 mmol/L (3.5-5.1)
[2018-10-05] MEDS: LIDOCAINE 1% (MPF) 5 ML VIAL (10:30)
== END 2018-10-05 10:41 | disposition home or self-care (01) ==
LOC: E/R 08:48
DX: R18.8 Other ascites (principal); I10 Essential (primary) hypertension; F17.210 Nicotine dependence, cigarettes, uncomplicated
CPT/HCPCS: 80053; 85025; 85610; 85730; 99285-25

== ENCOUNTER 2018-10-07 11:06 | Emergency (ER) | payer OTHER ==
[2018-10-07] MEDS ORDERED: IBUPROFEN 600 MG TAB PO (13:00)
[2018-10-07] MEDS: LIDOCAINE 1% (MPF) 5 ML VIAL (13:03)
== END 2018-10-07 13:36 | disposition home or self-care (01) ==
LOC: E/R 11:06
DX: K70.31 Alcoholic cirrhosis of liver with ascites (principal); R40.2142 Coma scale, eyes open, spontaneous, at arrival to emergency department; R40.2252 Coma scale, best verbal response, oriented, at arrival to emergency department; R40.2362 Coma scale, best motor response, obeys commands, at arrival to emergency department; I10 Essential (primary) hypertension; Z87.891 Personal history of nicotine dependence
CPT/HCPCS: 99285-25; Z7502

== ENCOUNTER 2018-10-12 09:10 | Emergency (ER) | payer OTHER ==
[2018-10-12] MEDS: LIDOCAINE 1% (MPF) 5 ML VIAL (11:18)
== END 2018-10-12 11:43 | disposition home or self-care (01) ==
LOC: E/R 09:10
DX: R18.8 Other ascites (principal); I10 Essential (primary) hypertension; F17.210 Nicotine dependence, cigarettes, uncomplicated
CPT/HCPCS: 99285-25; Z7502

== ENCOUNTER 2018-10-16 09:30 | Emergency (ER) | payer OTHER ==
[2018-10-16 11:08] LABS: ADD MAN DIFF? NO
[2018-10-16 11:09] LABS: ABNORMAL IP MESSAGE 1; BASOPHIL # 0.1 10^3/ul (0.0-0.1); BASOPHILS % 0.7 % (0.0-2.0); EOSINOPHILS # 0.3 10^3/ul (0.0-0.5); EOSINOPHILS % 3.1 % (0.0-7.0); HEMATOCRIT 24.7 % (42.0-52.0); HEMOGLOBIN 8.5 g/dl (14.0-18.0); LYMPHOCYTES # 1.4 10^3/ul (0.8-2.9); LYMPHOCYTES % 12.9 % (15.0-51.0); MEAN CORPUSCULAR HGB CONC 34.4 g/dl (32.0-37.0); MEAN CORPUSCULAR VOLUME 101.6 fl (82.0-101.0); MEAN PLATELET VOLUME 9.2 fl (7.4-10.4); MONOCYTE # 1.1 10^3/ul (0.3-0.9); MONOCYTES % 10.2 % (0.0-11.0); NEUTROPHIL # 7.9 10^3/ul (1.6-7.5); NEUTROPHILS % 72.6 % (39.0-77.0); PLATELET COUNT 94 10^3/UL (140-415); POSITIVE DIFF @See below; RED BLOOD COUNT 2.43 10^6/ul (4.70-6.10); RED CELL DISTRIBUTION WIDTH 13.2 % (11.5-14.5)
[2018-10-16 11:09] LABS: WHITE BLOOD COUNT 10.9 10^3/ul (4.8-10.8)
[2018-10-16 11:27] LABS: ALANINE AMINOTRANSFERASE 42 IU/L (13-69); ALBUMIN 2.4 g/dl (3.3-4.9); ALBUMIN/GLOBULIN RATIO 0.54; ALKALINE PHOSPHATASE 287 IU/L (42-121); ANION GAP 4 (5-13); ASPARTATE AMINO TRANSFERASE 42 IU/L (15-46); BILIRUBIN,INDIRECT 0.7 mg/dl (0-1.1); BILIRUBIN,TOTAL 0.7 mg/dl (0.2-1.3); BLOOD UREA NITROGEN 27 mg/dl (7-20); CALCIUM 8.1 mg/dl (8.4-10.2); CARBON DIOXIDE 22 mmol/L (21-31); CHLORIDE 101 mmol/L (97-110); CREATININE 0.91 mg/dl (0.61-1.24); Estimated GFR > 60 mL/min (>60); GLUCOSE 108 mg/dl (70-220); LIPASE 321 U/L (23-300); POTASSIUM 4.9 mmol/L (3.5-5.1); SODIUM 127 mmol/L (135-144); TOTAL PROTEIN 6.8 g/dl (6.1-8.1)
[2018-10-16 11:36] LABS: INR 1.34; PROTIME 16.7 Sec (11.9-14.9); PT RATIO 1.3
[2018-10-16] MEDS: LIDOCAINE 1% (MPF) 5 ML VIAL (12:33)
== END 2018-10-16 13:35 | disposition home or self-care (01) ==
LOC: E/R 09:30
DX: R18.8 Other ascites (principal); I10 Essential (primary) hypertension; F17.210 Nicotine dependence, cigarettes, uncomplicated
CPT/HCPCS: 36415; 80053; 83690; 85025; 85610; 99285-25

== ENCOUNTER 2018-10-25 10:03 | Emergency (ER) | payer OTHER ==
[2018-10-25] MEDS: LIDOCAINE 1% (MPF) 5 ML VIAL (11:49)
== END 2018-10-25 12:06 | disposition home or self-care (01) ==
LOC: E/R 10:03
DX: K70.31 Alcoholic cirrhosis of liver with ascites (principal); I10 Essential (primary) hypertension; F17.210 Nicotine dependence, cigarettes, uncomplicated
CPT/HCPCS: 99285-25; Z7502

== ENCOUNTER 2018-10-29 10:51 | Emergency (ER) | payer OTHER ==
[2018-10-29 13:08] LABS: ADD MAN DIFF? NO
[2018-10-29 13:12] LABS: ABNORMAL IP MESSAGE 1; BASOPHILS % 0.8 % (0.0-2.0); EOSINOPHILS # 0.2 10^3/ul (0.0-0.5); EOSINOPHILS % 4.6 % (0.0-7.0); HEMATOCRIT 27.3 % (42.0-52.0); HEMOGLOBIN 9.4 g/dl (14.0-18.0); LYMPHOCYTES # 1.1 10^3/ul (0.8-2.9); LYMPHOCYTES % 21.2 % (15.0-51.0); MEAN CORPUSCULAR HEMOGLOBIN 34.8 pg (29.0-33.0); MEAN CORPUSCULAR HGB CONC 34.4 g/dl (32.0-37.0); MEAN CORPUSCULAR VOLUME 101.1 fl (82.0-101.0); MEAN PLATELET VOLUME 9.7 fl (7.4-10.4); MONOCYTE # 0.6 10^3/ul (0.3-0.9); NEUTROPHIL # 3.1 10^3/ul (1.6-7.5); NEUTROPHILS % 61.8 % (39.0-77.0); PLATELET COUNT 85 10^3/UL (140-415); POSITIVE DIFF @See below; RED CELL DISTRIBUTION WIDTH 13.1 % (11.5-14.5)
[2018-10-29 13:31] LABS: INR 1.22; PARTIAL THROMBOPLASTIN TIME 42.8 Sec (23.0-35.0); PROTIME 15.5 Sec (11.9-14.9); PT RATIO 1.2
== END 2018-10-29 14:04 | disposition left against medical advice (07) ==
LOC: E/R 10:51
DX: K70.31 Alcoholic cirrhosis of liver with ascites (principal); I10 Essential (primary) hypertension; F17.210 Nicotine dependence, cigarettes, uncomplicated
CPT/HCPCS: 85025; 85610; 85730; 99283

== ENCOUNTER 2018-10-30 10:53 | Emergency (ER) | payer OTHER ==
[2018-10-30] MEDS: LIDOCAINE 1% (MPF) 5 ML VIAL (14:21)
== END 2018-10-30 14:24 | disposition home or self-care (01) ==
LOC: E/R 10:53
DX: K70.31 Alcoholic cirrhosis of liver with ascites (principal); I10 Essential (primary) hypertension; Z87.891 Personal history of nicotine dependence
CPT/HCPCS: 99285-25; Z7502

== ENCOUNTER 2018-11-02 09:31 | Emergency (ER) | payer OTHER ==
[2018-11-02] MEDS: LIDOCAINE 1% (MPF) 5 ML VIAL (15:24)
== END 2018-11-02 14:51 | disposition home or self-care (01) ==
LOC: E/R 09:31
DX: R18.8 Other ascites (principal); I10 Essential (primary) hypertension; Z87.891 Personal history of nicotine dependence
CPT/HCPCS: 99285-25; Z7502

== ENCOUNTER 2018-11-06 10:58 | Emergency (ER) | payer OTHER ==
[2018-11-06] MEDS: LIDOCAINE 1% (MPF) 5 ML VIAL (14:55)
== END 2018-11-06 15:20 | disposition home or self-care (01) ==
LOC: E/R 10:58
DX: R18.8 Other ascites (principal); I10 Essential (primary) hypertension; F17.210 Nicotine dependence, cigarettes, uncomplicated
CPT/HCPCS: 99285-25; Z7502